=== PATIENT | female | born 1975 | race Caucasian/White ===

== ENCOUNTER 2016-03-27 06:58 | Day surgery (SDC) | payer BC ==
[~2016-03-27] VITALS: Ht 172.7 cm; Wt 81.6 kg
[~2016-03-27 06:58] MED LIST: ADVIL200 MG PO; DRAMAMINE50 MG PO; ESSENTIAL OILS; FLONASE ALLERG9.9 ML BOTH NARES; MOTION SICKNESS25 M1 PO; TYLENOL WITH C1 EACH PO; VITAMIN C1000 MG PO
[2016-03-27 07:28] VITALS: BP 116/73
[2016-03-27] MEDS ORDERED: TYLENOL EXTRA500 MG PO (07:32)
[2016-03-27] MEDS ORDERED: ENDOCET 5-3251 EACH PO (11:19)
[2016-03-27 11:58] VITALS: BP 116/80
[2016-03-27 13:02] VITALS: BP 121/73
== END 2016-03-27 13:15 | disposition home or self-care (01) ==
LOC: SDC 06:58
DX: Z40.02 Encounter for prophylactic removal of ovary(s) (principal); Z40.09 Encounter for prophylactic removal of other organ; N89.7 Hematocolpos; Z15.01 Genetic susceptibility to malignant neoplasm of breast; Z80.3 Family history of malignant neoplasm of breast
CPT/HCPCS: 88305; 88307; J0131; J0690; J1100; J1170; J1885; J2250; J2405; J2710; J3010

== ENCOUNTER 2017-08-10 05:41 | Emergency (ER) | payer BC ==
[~2017-08-10] VITALS: Ht 172.7 cm; Wt 80.6 kg
[~2017-08-10 05:41] MED LIST changes: +ENDOCET 5-3251 EACH PO; +TYLENOL EXTRA500 MG PO
[2017-08-10 06:46] LABS: HEMATOCRIT 37.8 % (36.0-46.0); HEMOGLOBIN 12.9 G/DL (11.9-15.5); MCH 30.3 PG (29.0-34.0); MCHC 34.1 G/DL (30.0-36.0); MCV 88.7 FL (83-99); PLATELET COUNT 279 K/uL (156-360); RBC DIS.WIDTH-CV 11.9 % (11.8-14.6); RBC DIS.WIDTH-SD 38.1 % (39-53); RED BLOOD COUNT 4.26 M/uL (3.80-5.20); WHITE BLOOD COUNT 9.5 K/uL (4.1-10.2)
[2017-08-10 07:22] LABS: CHLORIDE 103 MEQ/L (99-109); POTASSIUM 3.7 MEQ/L (3.7-5.4); SODIUM 138 MEQ/L (136-147)
[2017-08-10 07:24] LABS: MONOSPOT (MONONUCLEOSIS SEROL) NEGATIVE
[2017-08-10 07:27] LABS: CREATININE 0.6 MG/DL (0.6-1.3); GFR ESTIMATE (CALCULATED) > 59 mL/min/; GLUCOSE 105 mg/dL (70-99); UREA NITROGEN (BUN) 7 mg/dL (9-23)
[2017-08-10 07:32] LABS: QUANTITATIVE HCG < 4.0 MIU/ML
[2017-08-10 08:29] LABS: APPEARANCE CLEAR ((CLEAR)); BILIRUBIN NEGATIVE; BLOOD NEGATIVE; COLOR YELLOW ((YELLOW)); GLUCOSE (STRIP) NEGATIVE; KETONES NEGATIVE; LEUKOCYTES SMALL; NITRITE NEGATIVE; PROTEIN (STRIP) NEGATIVE; SPECIFIC GRAVITY 1.009 (1.000-1.030); UROBILINOGEN 0.2 MG/DL (0.2-1.0)
[2017-08-10 08:32] LABS: BACTERIA RARE /HPF; EPITHELIAL CELLS RARE /HPF; MUCUS TRACE /LPF; RED BLOOD CELLS 0-5 /HPF (0-5); UCUL ADDED? YES
[2017-08-10] MEDS ORDERED: MOTRIN800 MG PO (08:45)
[2017-08-10] MEDS ORDERED: FLONASE16 G1 BOTH NARES (08:45)
[2017-08-10 09:21] VITALS: BP 135/80
== END 2017-08-10 09:22 | disposition home or self-care (01) ==
LOC: EME 05:41
PROVIDERS: Nurse Practitioner Family
DX: B34.9 Viral infection, unspecified (principal)
CPT/HCPCS: 71046; 80048; 81003; 84702; 85027; 86308; 87086; 87502; 99281; 99285; J1885; J7120